=== PATIENT | female | born 1935 | race Caucasian/White ===

== ENCOUNTER 2020-08-13 12:43 | Emergency (ER) | payer MEDICARE, OTHER ==
[~2020-08-13] VITALS: Ht 147.3 cm; Wt 61.2 kg
--- NOTE | 2020-08-13 12:43 | NUR ---
Patient EDUIN CLAYTON from [facility], transferred to bed 2. RN evaluating patient at bedside.
[2020-08-13 12:48] VITALS: BP 150/60
--- NOTE | 2020-08-13 13:00 | NUR ---
BRENTON PADILLA COLLECTED AND WALKED TO LAB.
--- NOTE | 2020-08-13 13:01 | NUR ---
ELY JARAMILLO (DAUGHTER) [phone]
[2020-08-13 13:29] LABS: BASOPHILS % (AUTO) 0.6 % (0.0-2.0); EOSINOPHILS # (AUTO) 0.1 K/uL (0-0.4); EOSINOPHILS % (AUTO) 2.2 % (0.0-4.0); HEMATOCRIT 36.7 % (36-48); HEMOGLOBIN 12.1 g/dL (12.0-16.0); LYMPHOCYTES # (AUTO) 1.2 K/uL (2.5-16.5); LYMPHOCYTES % (AUTO) 24.5 % (20.5-51.1); MEAN CORPUSCULAR HEMOGLOBIN 30 pg (27-31); MEAN CORPUSCULAR HGB CONC 33 g/dL (33-37); MEAN CORPUSCULAR VOLUME 89.9 fL (80-94); MONOCYTES # (AUTO) 0.5 K/uL (0.8-1.0); MONOCYTES % (AUTO) 9.8 % (1.7-9.3); NEUTROPHILS # (AUTO) 3.2 K/uL (1.8-7.7); NEUTROPHILS % (AUTO) 62.9 % (42.2-75.2); PLATELET COUNT (AUTO) 104 K/uL (140-450); RED BLOOD CELL COUNT(AUTO) 4.09 MIL/uL (4.20-5.40); RED CELL DISTRIBUTION WIDTH 17.9 % (11.6-13.7)
[2020-08-13 14:03] LABS: ALBUMIN 2.9 g/dL (3.4-5.0); ANION GAP 11.5 (8-16); ASPARTATE AMINOTRANSFERASE 48 U/L (15-37); CARBON DIOXIDE 26.7 mmol/L (21-32); CHLORIDE 100 mmol/L (98-107); CREATININE 1.6 mg/dL (0.6-1.3); GLUCOSE 79 mg/dL (74-106); POTASSIUM 4.2 mmol/L (3.5-5.1); SODIUM SERUM 134 mmol/L (136-145); TOTAL BILIRUBIN 0.4 mg/dL (0.0-1.0); UREA NITROGEN, BLOOD 27 mg/dL (7-18)
[2020-08-13] MEDS ORDERED: NACL 0.9% 1,000 ML IV ONE (14:20)
--- NOTE | 2020-08-13 15:05 | NUR ---
IV started right hand #22g, tolerated well
--- NOTE | 2020-08-13 15:57 | NUR ---
Received 1 liter IVF normal saline
--- NOTE | 2020-08-13 16:20 | NUR ---
Patient using bedpan to have a BM, dark green/black semi soft stool Gu[place] +, Dr. Sousa made aware
--- NOTE | 2020-08-13 17:25 | NUR ---
[facility] has found placement for patient at [facility] bed 209-C. night shift manager gave report to facility, ng [facility] ambulance transport for patient. Dr. Camden mtz physician
--- NOTE | 2020-08-13 17:39 | NUR ---
IV d/c'd in preparation for discharge, EMS/[facility] ambulance due @ 1800 Gown removed and patient dressed in street clothes
--- NOTE | 2020-08-13 18:11 | NUR ---
[facility] IV d/d'd, cannula intact, manual pres held, bleeding controlled. Discharge instructions and verbalized understanding, questions answered. Report given to facility by Custodial Officer at Transfer Center. Report given to EMS Kylee of [facility] ambulance. Patient dressed in street clothes, ID band removed. Wheeled out of the ED to ambulance.
[2020-08-13 18:12] VITALS: BP 147/89
--- NOTE | 2020-08-14 19:38 | NUR ---
LATE ENTRY- Normal saline 0.9% IV fluids discontinued at 1610.
== END 2020-08-13 18:11 ==
LOC: MED 12:43
DX: U07.1 COVID-19 (principal); B34.9 Viral infection, unspecified; I10 Essential (primary) hypertension
CPT/HCPCS: 36415; 71045; 80053; 85025; 87426; 96360; 99285; J7030; Q0092; 99284